=== PATIENT | female | born 1955 | race African-American/Black ===

== ENCOUNTER 2021-08-27 11:00 | Emergency (ER) | payer OTHER, BC ==
[2021-08-27] MEDS ORDERED: Fluorescein Opthalmic Strip ONE (11:17)
[2021-08-27] MEDS ORDERED: Proparacaine 0.5% Opth 15 ML BOT ONE (11:17)
[2021-08-27] MEDS ORDERED: Erythromycin Base 0.5% Oint 1 GM TUBE ONE (11:33)
== END 2021-08-27 11:44 | disposition home or self-care (01) ==
LOC: NAV ERS 11:00
DX: S05.01XA Injury of conjunctiva and corneal abrasion without foreign body, right eye, initial encounter (principal); F17.210 Nicotine dependence, cigarettes, uncomplicated; X58.XXXA Exposure to other specified factors, initial encounter
CPT/HCPCS: 99283

== ENCOUNTER 2025-01-22 03:41 | Emergency (ER) | payer BC, MEDICARE ==
[2025-01-22 04:10] LABS: #Basophils 0.3 thou/uL (0.0-0.2); #Eosinophils 0.2 thou/uL (0.0-0.7); #Lymphocytes 2.6 thou/uL (1.20-3.40); #Monocytes 0.4 thou/uL (0.11-0.59); #Neutrophils 7.1 thou/uL (1.40-6.50); %Basophils 2.8 % (0.0-1.0); %Eosinophils 1.6 % (0.0-10.0); %Lymphocytes 24.5 % (21.0-51.0); %Monocytes 3.8 % (0.0-10.0); %Neutrophils 67.3 % (42.0-75.0); Hematocrit 41.9 % (36.0-47.0); Hemoglobin 14.2 g/dL (12.0-16.0); Mean Corpuscular Hemoglobin 33.1 pg (27.0-31.0); Mean Corpuscular Volume 98.0 fl (78.0-98.0); Platelet Count 276 10x3/uL (130-400); Red Blood Cell (RBC) Count 4.28 mill/uL (4.20-5.40); White Blood Cell (WBC) Count 10.5 10x3/uL (4.8-10.8)
[2025-01-22 04:24] LABS: ALT (SGPT) 22 U/L (Less than 34); AST (SGOT) 38 U/L (11-34); Albumin 4.4 g/dL (3.1-4.5); Alkaline Phosphatase 91 U/L (40-110); Anion Gap 16 mmol/L (10-20); BUN (Urea Nitrogen) 14 mg/dL (9.8-20.1); Bilirubin, Total 0.3 mg/dL (0.3-1.2); Calc. Creatinine Clearance 0 mL/min (70-130); Calcium 9.2 mg/dL (7.8-10.44); Carbon Dioxide 17 mmol/L (23-31); Chloride 106 mmol/L (98-107); Globulin 4.6 g/dL (2.4-3.5); Glucose 107 mg/dL (80-115); Lipase 16 U/L (8-78); Potassium 4.3 mmol/L (3.5-5.1); Sodium 135 mmol/L (136-145); Troponin I Less than 0.010 ng/mL (< 0.028)
[2025-01-22] MEDS ORDERED: Ciprofloxacin 500 MG TAB ONE (06:45)
== END 2025-01-22 07:07 | disposition home or self-care (01) ==
LOC: NAV ERS 03:41
DX: K52.9 Noninfective gastroenteritis and colitis, unspecified (principal); R55 Syncope and collapse; S01.01XA Laceration without foreign body of scalp, initial encounter; S01.112A Laceration without foreign body of left eyelid and periocular area, initial encounter; E04.9 Nontoxic goiter, unspecified; F17.210 Nicotine dependence, cigarettes, uncomplicated; Z23 Encounter for immunization; W18.12XA Fall from or off toilet with subsequent striking against object, initial encounter
CPT/HCPCS: 12011; 36416; 70450; 71275; 74174; 80053; 83690; 84484; 85025; 90471; 90715; 93005; 96360; 96361; J7030